=== PATIENT | male | born 1980 | race Caucasian/White ===

== ENCOUNTER 2021-05-26 18:16 | Outpatient (CLI) | payer MEDICAID, SELFPAY ==
--- NOTE | 2021-05-26 18:15 | RT.EKG_ITS ---
APPROVED REPORT Exam: Resting ECG Reason for Exam: Fatigue Patient Location: O HR:108 bpm ECG Measurements Heart Rate 108 AXIS LA 136 P 83 QRSd 95 QRS 12 QT 319 T 76 QTc 428 Conclusion Sinus tachycardia...rate> 99
== END 2021-05-26 18:17 | disposition home or self-care (01) ==
PROVIDERS: Visit Provider Physician Assistant
DX: R07.9 Chest pain, unspecified (principal); R00.0 Tachycardia, unspecified
CPT/HCPCS: 93010

== ENCOUNTER 2021-05-26 19:06 | Outpatient (CLI) | payer MEDICAID, SELFPAY ==
--- NOTE | 2021-05-26 19:15 | DI.RAD_ITS ---
Exam(s) XR CHEST 2V PA LATERAL EXAM: XR CHEST 2V PA LATERAL CLINICAL HISTORY: chest pain intermittent, fatigue TECHNIQUE: 2D digital imaging was performed of the chest. Three images were obtained. PA and later al views were obtained. COMPARISON: No exams were available for comparison FINDINGS: MEDIASTINUM: Normal. HEART: Normal. PULMONARY VASCULATURE: Normal. LUNGS: Clear. PLEURAL SPACE: No pleural effusion or pneumothorax. BONE:Within normal limits for the patient's age. OTHER FINDINGS:Normal. IMPRESSION: No acute pulmonary findings. DATA REPOSITORY: RADIATION DOSE DELIVERED:
--- NOTE | 2021-05-26 20:13 | DI.VRAD_ITS ---
PROCEDURE INFORMATION: Exam: XR Chest Exam date and time: 05/26/2021 7:17 PM Age: 41 years old Clinical indication: Other: Intermittent chest pain TECHNIQUE: Imaging protocol: XR of the chest. Views: 2 views. COMPARISON: No relevant prior studies available. FINDINGS: Lungs: Unremarkable. No consolidation. Pleural spaces: Unremarkable. No pleural effusion. No pneumothorax. Heart/Mediastinum: Unremarkable. No cardiomegaly. Bones/joints: Unremarkable. IMPRESSION: No acute findings. Dictated and Authenticated by: Dustin Malone MD. Ordering:ALFREDITO Frazier MD
== END 2021-05-26 19:26 ==
PROVIDERS: Visit Provider Physician Assistant
DX: R53.83 Other fatigue (principal); R07.89 Other chest pain
CPT/HCPCS: 71046

== ENCOUNTER 2021-05-26 22:10 | Outpatient (REF) | payer MEDICAID, SELFPAY ==
[2021-05-26 22:09] LABS: Abs Immature Grans 0.03 10^3/uL (0.0-0.06); Absolute Basophil Count 0.03 10^3/uL (0.0-0.2); Absolute Eosinophil Count 0.13 10^3/uL (0.0-0.7); Absolute Monocyte Count 0.54 10^3/uL (0.1-0.8); Absolute Neutrophil Count 5.74 10^3/uL (1.2-6.7); Basophils % 0.4; Eosinophils % 1.6; HCT 43.6 % (40.0-50.0); HGB 14.3 g/dL (13.5-17.5); Immature Grans % 0.4; Lymphocytes % 21.8; MCH 31.4 pg (27.0-33.0); MCHC 32.8 % (32.0-36.0); MCV 95.6 fL (80-95); MPV 10.5 fL (8.0-11.0); Monocytes % 6.5; Neutrophils % 69.3; Nucleated RBC 0 %; Platelet Count 237 10^3/uL (130-400); RBC 4.56 10^6/uL (4.36-5.78); RDW 12.6 % (11.8-14.1); RDW-SD 45.1 fL; WBC 8.27 10^3/uL (4.4-10.8)
[2021-05-26 22:37] LABS: ALT 25 U/L (16-63); AST 17 U/L (15-37); Albumin 4.2 g/dL (3.4-5.0); Alkaline Phosphatase 75 U/L (46-116); Anion Gap 8.2 mmol/L (3-11); BUN 26 mg/dL (7-18); Bilirubin, Total 0.5 mg/dL (0.2-1.0); CO2 28.8 mmol/L (21.0-32.0); CREATININE 1.2 mg/dL (0.70-1.30); Calcium 9.2 mg/dL (8.5-10.1); Chloride 104 mmol/L (98-107); Glucose 90 mg/dL (74-106); Potassium 4.3 mmol/L (3.5-5.1); Sodium 141 mmol/L (136-145); TSH (W/Ref FT4) 0.97 uIU/mL (0.36-3.74); Total Protein 7.4 g/dL (6.4-8.2)
[2021-05-28 10:09] LABS: Syphilis Serology (RPR) Negative (Negative)
[2021-05-28 10:48] LABS: HIV-1/2 Ag & Ab Screen Negative (Negative)
[2021-05-28 11:05] LABS: Hepatitis A Antibody IgM Negative (Negative); Hepatitis B Core Antibody Negative (Negative); Hepatitis B surface Ag Negative (Negative); Hepatitis C Ab w Rflx HCV PCR Negative (Negative)
[2021-05-28 11:52] LABS: COVID-19 RT-PCR UVMMC Result Negative (Negative)
[2021-05-29 22:06] LABS: Anaplasma phagocytophilum Negative (Negative); B. miyamotoi PCR Negative (Negative); Babesia divergens/MO-1 Negative (Negative); Babesia duncani Negative (Negative); Babesia microti Negative (Negative); Ehrlichia chaffeensis Negative (Negative); Ehrlichia ewingii/canis Negative (Negative); Ehrlichia muris eauclairensis Negative (Negative)
== END 2021-05-26 22:11 | disposition home or self-care (01) ==
LOC: LBN 22:10
PROVIDERS: Visit Provider Physician Assistant
DX: R53.83 Other fatigue (principal); R52 Pain, unspecified
CPT/HCPCS: 80053; 86704; 86709; 86803; 87340; 87389; 87798; U0003; 84443; 85025; 86592; 87086